=== PATIENT | male | born 1995 | race Caucasian/White ===

== ENCOUNTER 2018-03-19 11:08 | Emergency (ER) | payer MEDICAID, OTHER ==
[2018-03-19] MEDS: DIPHTH/TET/ACEL PERTUSS (ADULT) 0.5 ML VIAL IM (12:44)
[2018-03-19] MEDS: NICARDipine HCL 30 MG CAPSULE PO (12:48)
[2018-03-19] MEDS: LIDOCAINE 1% (MDV) 10 ML INJ INFIL (12:49)
[2018-03-19] MEDS: LIDOCAINE 1% (MPF) 5 ML VIAL INFIL (13:59)
== END 2018-03-19 14:23 | disposition home or self-care (01) ==
LOC: FTE 11:08
DX: S61.412A Laceration without foreign body of left hand, initial encounter (principal); I10 Essential (primary) hypertension; W26.8XXA Contact with other sharp object(s), not elsewhere classified, initial encounter; Y92.89 Other specified places as the place of occurrence of the external cause; Z23 Encounter for immunization
CPT/HCPCS: 12002; 73130-LT; 90471; 90715; 99283-25

== ENCOUNTER 2018-03-25 17:53 | Emergency (ER) | payer MEDICAID | END 2018-03-25 19:45 | disposition left against medical advice (07) | LOC: FTE 17:53 | DX: Z48.01 Encounter for change or removal of surgical wound dressing (principal) | CPT/HCPCS: 99281; Z7502 ==